=== PATIENT | male | born 1990 | race Caucasian/White ===

== ENCOUNTER 2018-06-03 16:19 | Emergency (ER) | payer MEDICAID ==
[~2018-06-03] VITALS: Ht 167.6 cm; Wt 90.9 kg
[2018-06-03] MEDS ORDERED: ESCI10TA PO (16:28)
[2018-06-03 17:47] LABS: BASOPHILS % (AUTO) 0.3 % (0.0-2.0); EOSINOPHILS % (AUTO) 2.9 % (1.0-6.0); HEMATOCRIT 43.9 % (41-53); HEMOGLOBIN 14.7 g/dL (13.5-17.5); LYMPHOCYTES # (AUTO) 2.6 K/uL (1.0-4.8); LYMPHOCYTES % (AUTO) 36.7 % (22.0-44.0); MEAN CORPUSCULAR HEMOGLOBIN 29.7 pg (26.0-34.0); MEAN CORPUSCULAR HGB CONC 33.6 G/dL (31.0-37.0); MEAN CORPUSCULAR VOLUME 89 fL (80-100); MONOCYTES # (AUTO) 0.7 K/uL (0.1-1.0); MONOCYTES % (AUTO) 9.7 % (2.0-9.0); NEUTROPHILS # (AUTO) 3.6 K/uL (1.8-7.7); NEUTROPHILS % (AUTO) 50.4 % (40.0-70.0); PLATELET COUNT (AUTO) 232 K/uL (150-450); RED BLOOD CELL COUNT(AUTO) 4.96 MIL/uL (4.50-5.90); RED CELL DISTRIBUTION WIDTH 13.3 % (11.5-14.5)
[2018-06-03 17:54] LABS: ALANINE AMINOTRANSFERASE 29 U/L (12-78); ALBUMIN 3.9 g/dL (3.4-5.0); ALKALINE PHOSPHATASE 84 U/L (46-116); ANION GAP 10 mmol/L (8-16); ASPARTATE AMINOTRANSFERASE 19 U/L (15-37); BILIRUBIN,TOTAL 0.3 mg/dL (0.1-1.0); CALCIUM, TOTAL 9.1 mg/dL (8.8-10.5); CARBON DIOXIDE 26 mmol/L (22-29); CHLORIDE 107 mmol/L (98-107); CREATININE 1.15 mg/dL (0.60-1.30); GLOMERULAR FILTR. RATE CALC > 60 mL/min (>60); GLUCOSE,RANDOM 88 mg/dL (70-110); SODIUM SERUM 143 mmol/L (136-145); TOTAL PROTEIN, SERUM 6.6 g/dL (6.4-8.2)
[2018-06-03 18:11] LABS: UREA NITROGEN, BLOOD 17 mg/dL (7-18)
[2018-06-03 18:15] LABS: AMPHET/METH SCREEN,URINE NEGATIVE (NEGATIVE); BARBITURATE SCREEN, URINE NEGATIVE (NEGATIVE); BENZODIAZEPINES SCREEN,URINE NEGATIVE (NEGATIVE); CANNABINOID SCREEN,URINE NEGATIVE (NEGATIVE); COCAINE SCREEN,URINE NEGATIVE (NEGATIVE); METHADONE SCREEN, URINE NEGATIVE (NEGATIVE); OPIATE SCREEN,URINE NEGATIVE (NEGATIVE)
[2018-06-03 18:16] LABS: PHENCYCLIDINE SCREEN,URINE NEGATIVE (NEGATIVE)
[2018-06-03 18:43] VITALS: BP 110/66
== END 2018-06-03 19:11 | disposition home or self-care (01) ==
LOC: EMS 16:22
DX: R45.6 Violent behavior (principal); F41.9 Anxiety disorder, unspecified; F32.9 Major depressive disorder, single episode, unspecified; F17.210 Nicotine dependence, cigarettes, uncomplicated; Z79.899 Other long term (current) drug therapy
CPT/HCPCS: 36415; 80053; 80307; 85025; 99284; G0480

== ENCOUNTER 2020-02-08 09:03 | Emergency (ER) | payer MEDICAID ==
[~2020-02-08] VITALS: Ht 172.7 cm; Wt 104.5 kg
[~2020-02-08 09:03] MED LIST: ESCI-8 PO
[2020-02-08] MEDS ORDERED: FLUORESCEIN SODIUM 1 MG STRIP OS ONE (10:30)
[2020-02-08] MEDS ORDERED: IBUPROFEN 800 MG TABLET PO ONE (10:30)
[2020-02-08] MEDS ORDERED: PROPARACAINE HCL 0.5% 15 ML OPHTHALMIC SOLUTION OS ONE (10:30)
[2020-02-08 11:28] VITALS: BP 129/87
[2020-02-08] MEDS ORDERED: HYDROCODONE/ACETAMINOPHEN 5-325 MG TABLET PO ONE (11:30)
== END 2020-02-08 11:57 | disposition home or self-care (01) ==
LOC: EMS 09:09
DX: S05.02XA Injury of conjunctiva and corneal abrasion without foreign body, left eye, initial encounter (principal); X58.XXXA Exposure to other specified factors, initial encounter; Y93.89 Activity, other specified; Y92.89 Other specified places as the place of occurrence of the external cause; Y99.8 Other external cause status
CPT/HCPCS: Z7502; Z7610

== ENCOUNTER 2020-02-09 07:30 | Emergency (ER) | payer MEDICAID ==
[~2020-02-09] VITALS: Ht 180.3 cm; Wt 127.3 kg
[2020-02-09] MEDS ORDERED: ERYTHROMYCIN 0.5% 3.5 GM TUBE OPHTHALMIC OINTMENT OS ONE (08:30)
[2020-02-09 08:50] VITALS: BP 140/80
== END 2020-02-09 08:51 | disposition home or self-care (01) ==
LOC: EMS 07:30
DX: S05.02XA Injury of conjunctiva and corneal abrasion without foreign body, left eye, initial encounter (principal); F41.9 Anxiety disorder, unspecified; F17.210 Nicotine dependence, cigarettes, uncomplicated; X58.XXXA Exposure to other specified factors, initial encounter; Y93.89 Activity, other specified; Y92.89 Other specified places as the place of occurrence of the external cause; Y99.8 Other external cause status

== ENCOUNTER 2020-09-25 09:55 | Emergency (ER) | payer MEDICAID ==
[~2020-09-25] VITALS: Ht 172.7 cm; Wt 104.5 kg
[2020-09-25 11:51] VITALS: BP 134/80
[2020-09-25] MEDS ORDERED: IBUPROFEN 600 MG TABLET PO ONE (12:00)
== END 2020-09-25 11:56 | disposition home or self-care (01) ==
LOC: EMS 10:12
DX: S76.012A Strain of muscle, fascia and tendon of left hip, initial encounter (principal); X50.0XXA Overexertion from strenuous movement or load, initial encounter; Y93.89 Activity, other specified; Y92.89 Other specified places as the place of occurrence of the external cause; Y99.8 Other external cause status
CPT/HCPCS: 99283